=== PATIENT | female | born 1960 | race Caucasian/White ===

== ENCOUNTER 2019-03-16 07:34 | Inpatient (IN) | payer BC ==
--- NOTE | 2019-03-09 08:57 | EKG ---
Test Date: 2019-03-09 Test Time: 08:33:07 School Inspector: DELMY MEASUREMENT RESULTS: Intervals: Rate: 59 CA: 126 QRSD: 96 QT: 434 QTc: 429 [place]: P: 56 CA: 126 QRS: 23 T: 39 INTERPRETIVE STATEMENTS: Sinus bradycardia Otherwise normal ECG Compared to ECG 08/25/2016 15:18:06 Sinus rhythm no longer present Electronically Signed On 03-09-19 08:57:04 CHANNELER by Rachid Jackson
--- NOTE | 2019-03-09 09:34 | RAD REPORT ---
EXAM DESCRIPTION: Latanya Treadwell (2 Views)03/09/2019 8:58 am CLINICAL HISTORY: Preop for knee replacement COMPARISON: 2016 FINDINGS: The lungs appear clear of acute infiltrate. The heart is normal size Small to moderate hiatal hernia IMPRESSION: No acute abnormalities displayed
[2019-03-09 10:28] LABS: Urine Appearance CLEAR; Urine Bilirubin NEGATIVE (NEG); Urine Blood TRACE (NEG); Urine Color YELLOW; Urine Glucose NEGATIVE (NEG); Urine Protein NEGATIVE (NEG)
[2019-03-09 10:32] LABS: Absolute Lymphocytes (CBC) 1.4 K/uL (0.7-4.9); Hematocrit 38.3 % (36.0-45.0); Lymphocytes % 29.1 % (15.3-44.8); MPV 8.8 fL (7.6-11.3); RBC Red Blood Cell Count 4.86 M/uL (3.86-4.86)
[2019-03-09 10:35] LABS: Protime INR 0.98
[2019-03-09 10:38] LABS: Potassium 3.7 mmol/L (3.5-5.1)
[2019-03-09 10:49] LABS: Urine Microscopic Reflex ORDER UMIC
[2019-03-09 10:50] LABS: Albumin 3.7 g/dL (3.4-5.0); Bilirubin Direct 0.1 mg/dL (0-0.2); Bilirubin Total 0.5 mg/dL (0.2-1.0); Protein, Total 7.1 g/dL (6.4-8.2)
[2019-03-09 10:58] LABS: Urine Bacteria <20 /HPF (<20); Urine Culture Reflex Order REFLEXED; Urine Mucus LIGHT /HPF (NONE SEEN)
--- OUTSIDE RECORDS SUMMARY | 2019-03-16 07:37 | XMS REPORT ---
:1960 Author Organization [facility] Address [address] [place] [address] Care Team Providers Name Role Phone UNKNOWN, REFFERING Primary Care Provider Unavailable CADENCE ADKINS JR Unavailable Unavailable Payers Payer Name Policy Type Policy Number Effective Date Expiration Date Problems This patient has no known problems. Allergies, Adverse Reactions, Alerts Allergy Allergy Status Severity Reaction(s) Onset Inactive Treating Comments Name Type Date Date Clinician No Known DA Active U 2018-11 Allergies 13 00:00:0 0 Medications This patient has no known medications. Results Test Description Test Time Test Comments Text Results Atomic Results Result Comments - XR FLUORO FOR SPINE 2018-11-17 12:07:00 Patient Name: ELIS JONES INJ Unit No: [id number] EXAMS: CPT CODE: [id number] XR FLUORO FOR SPINE INJ 86399 LUMBAR FACET INJECTION REFERRING PHYSICIAN: PREOPERATIVE DIAGNOSIS: 1. Lumbar facet arthropathy POSTOPERATIVE DIAGNOSIS: 1. Bilateral L4-5, bilateral L5-S1 lumbar facet spondylosis without radiculopathy PROCEDURES PERFORMED Fluoroscopically guided needle localization of the bilateral L4-5, bilateral L5-S1 lumbar facets with injection of local anesthetic and steroids 2. Arthrograms of the bilateral L4-5, bilateral L5-S1 lumbar facets FINDINGS: 1. Concordant provocation both joints both sides ANTIBIOTIC: Cefazolin ESTIMATED BLOOD LOSS: Minimal ANESTHESIA: (TIVA) Total intravenous anesthetic (patient intolerant to sedatives and hypnotics). COMPLICATIONS: None DETAILS OF PROCEDURE: After obtaining stable vital signs, informed consent and IV access, with no known contraindications to proceeding, the patient was taken to the fluoroscopy suite and placed in a prone position with all extremities padded and appropriate monitors placed. A sterile prep and drape was performed over the lumbosacral spine. Using fluoroscopic visualization at each level the insertion site was marked for a paravertebral approach to the facets. Using standard technique, a 25 gauge needle was advanced to the facets. In AP view, the needle was advanced into the facets. Then, 1 ml of Isovue-300 contrast was injected to produce the arthrograms. AP, lateral and oblique views were documented. No paresthesias were elicited with needle insertion or injection and there were no signs of intravascular or intrathecal uptake. Then, 1 ml of 0.75% bupivacaine with 1 ml of 4% lidocaine and 10 mg of triamcinolone was injected incrementally with frequent negative aspirations. There were no signs of intravascular or intrathecal uptake. Each subsequent level was done using the same technique and medications. The patient's vital signs remained stable. LUMBAR TRANSFORAMINAL INJECTION REFERRING PHYSICIAN: PREOPERATIVE DIAGNOSIS: Degenerative Lumbar Disc Disease. [facility] NAME: ELIS JONES [address] [facility] PHYS: DOCUD - DoctorMervin MD [place], [place] [address] : 1960 AGE: 58 SEX: F LOC: [facility] PHONE #: [phone] EXAM DATE: 11/17/2018 STATUS: [facility] FAX #: [phone] RAD #: D/C DT PAGE 1 Signed Report (CONTINUED) Patient Name: ELIS JONES Unit No: [id number] EXAMS: CPT CODE: [id number] XR FLUORO FOR SPINE INJ 63311 <Continued> POSTOPERATIVE DIAGNOSIS: Bilateral lumbar radiculopathy PROCEDURES PERFORMED 1. Fluoroscopically guided needle localization of the bilateral L5 spinal nerve/nerves with transforaminal epidural steroid injection/injections. 2. Transforaminal epidurogram/epidurograms at bilateral L5. FINDINGS: Poor filling , bilateral L5. Concordant provocation bilateral L5 hips. Pain relief-100%. ANTIBIOTIC: Cefazolin ESTIMATED BLOOD LOSS: Minimal ANESTHESIA: (TIVA )Total intravenous anesthetic (patient intolerant to sedatives and hypnotics) COMPLICATIONS: None DETAILS OF PROCEDURE: After obtaining stable vital signs, informed consent and IV access, with no known contraindications to proceeding, the patient was taken to the fluoroscopy suite and placed in a prone position with all extremities padded and appropriate monitors placed. A sterile prep and drape was performed over the lumbosacral spine. Using fluoroscopic visualization at each level the insertion site was marked for a paravertebral approach to the foramen. Using standard technique, a 25 gauge needle was advanced to the base of the pedicle. In AP view, final positioning was obtained outside the 6 on the clock position on the pedicle. Then, 1 ml of Isovue-300 contrast was injected to produce the epidurograms. No paresthesias were elicited with needle insertion or injection and there were no signs of intravascular or intrathecal uptake. Then, with 1 ml of 4% lidocaine and 10 mg of triamcinolone was injected incrementally with frequent negative aspirations. There were no signs of intravascular or intrathecal uptake. Each subsequent level was done using the same technique and medications. The patient's vital signs remained stable. The patient was taken to the PACU in good condition. at 1207 Reported and signed by: Mervin Hogue M.D. CC: Technologist: Yodit Abdalla(Claus) Transcribed D/ (1791) Echo [facility] NAME: ELIS JONES [address] [facility] PHYS: Mervin Chung MD [place], [place] [address] : 1960 AGE: 58 SEX: F LOC: S[facility]ACI PHONE #: [phone] EXAM DATE: 11/17/2018 STATUS: [facility] FAX #: [phone] RAD #: D/C DT PAGE 2 Signed Report Patient Name: ELIS JONES Unit No: [id number] EXAMS: CPT CODE: [id number] XR FLUORO FOR SPINE INJ 41939 <Continued> Orig Print D/T: S: 11/17/2018 (2567) [facility] NAME: ELIS JONES [address] [facility] PHYS: Mervin Chung MD [place], [place] [address] : 1960 AGE: 58 SEX: F LOC: [facility] PHONE #: [phone] EXAM DATE: 11/17/2018 STATUS: [facility] FAX #: [phone] RAD #: D/C DT PAGE 3 Signed Report AFB Culture and Smear 2017-09-15 13:02:00 Specimen/Source: Wound/RT.WRISTCollected: 07/20/2017 15:06 Status: Final Last Updated: 09/15/2017 13:02 EFR-Rzriw-Juvwwwsgllbb (Final) (Final) 07/21/17 No acid fast bacill seen on direct smear Culture Result (Final) (Final) 09/15/17 No growth of AFB at six (6) weeks Fungus Culture with 2017-09-07 10:00:00 Specimen/Source: Stain Wound/RT.WRISTCollected: 07/20/2017 15:06 Status: Final Last Updated: 09/07/2017 10:00 Fungal Smear Result (Final) (Final) 07/21/17 No yeast or hyphae seen Culture Result (Final) (Final) 09/07/17 No fungus isolated at 6 weeks Culture, Wound Surgical 2017-07-25 09:23:00 Specimen/Source: Wound/RT.WRISTCollected: 07/20/2017 15:06 Status: Final Last Updated: 07/25/2017 09:23 Gram Stain (Final) (Final) 07/21/17 Few WBC'S , No Organisms Seen Culture Result (Final) (Final) 07/21/17 No growth 24 hours 07/22/17 No growth 48 hours 07/23/17 No growth 3 days 07/24/17 No growth 4 days 07/25/17 No growth 5 days 07/25/17 Anaerobic culture:No anaerobes isolated at 5 days
--- OUTSIDE RECORDS SUMMARY | 2019-03-16 07:38 | XMS REPORT ---
:1960 Author Organization [employer] Care Team Providers Name Role Phone Alessandro Matias Provider Role Unavailable Allergies No Known Allergies Problems Problem Type Condition Code Onset Dates Condition Status Problem Left sided sciatica M54.32 Active Problem Pain in joint of left knee M25.562 Active Problem Primary osteoarthritis of left knee M17.12 Active Medications No Known Medications Results No Known Results Summary Purpose eClinicalFedCyber Submission
--- OUTSIDE RECORDS SUMMARY | 2019-03-16 07:38 | XMS REPORT ---
:1960 Author Organization [employer] Care Team Providers Name Role Phone Benny Kay Provider Role Unavailable Allergies No Known Allergies Problems Problem Type Condition Code Onset Dates Condition Status Problem Left sided sciatica M54.32 Active Problem Pain in joint of left knee M25.562 Active Problem Primary osteoarthritis of left knee M17.12 Active Medications No Known Medications Results No Known Results Summary Purpose MOGLinicalPreedo Submission
--- OUTSIDE RECORDS SUMMARY | 2019-03-16 07:38 | XMS REPORT ---
:1960 Author Organization [employer] Care Team Providers Name Role Phone Benny Kay Provider Role Unavailable Allergies, Adverse Reactions, Alerts Substance Reaction Event Type N.K.D.A. Info Not Available Non Drug Allergy Problems Problem Type Condition Code Onset Dates Condition Status Problem Left sided sciatica M54.32 Active Problem Pain in joint of left knee M25.562 Active Problem Primary osteoarthritis of left knee M17.12 Active Assessment Primary osteoarthritis of left knee M17.12 Active Assessment Pain, joint, knee, left M25.562 Active Medications Medication Code Code Instructions Start End Status Dosage System Date Date Pantoprazole [facility] 45214601670 40 MG Oral Active not Sodium defined Tramadol HCl [facility] 66432706015 50 MG Orally Apr 12, Active 1 tablet every 6 hrs 2019 as needed Sertraline HCl [facility] 90266220521 100 MG Oral Active not defined Nitrofurantoin [facility] [address]-40 Active not Monohyd Macro defined Azithromycin [facility] 90102631327 250 MG Oral Active not defined Doxycycline [facility] 63621580454 100 MG Orally Active 1 capsule Hyclate every 12 hrs Fluconazole [facility] [address]-58 Active not defined Levothyroxine [facility] 08954542927 75 MCG Oral Active not Sodium defined Acetaminophen-Cod [facility] [address]-35 Active not eine #3 defined Protonix [facility] 53105351403 40 MG Orally Active 1 tablet Once a day Results No Known Results Summary Purpose [employer]Works Submission
--- OUTSIDE RECORDS SUMMARY | 2019-03-16 07:38 | XMS REPORT ---
[...] Medications Results No Known Results Summary Purpose authorSTREAM.cominicalPowerUp Toys Submission
--- OUTSIDE RECORDS SUMMARY | 2019-03-16 07:38 | XMS REPORT ---
[...] Medications Results No Known Results Summary Purpose DocLandinginicalLexdir Submission
--- OUTSIDE RECORDS SUMMARY | 2019-03-16 07:38 | XMS REPORT ---
[...] Medications Results No Known Results Summary Purpose Blast RampinicalScentbird Submission
[2019-03-16] MEDS ORDERED: NS 0.9% VIAL 10 ML ONE (07:54)
[2019-03-16] MEDS ORDERED: LIDOCAINE 2% MPF 5 ML VIAL ONE ×2 (07:54→10:09)
[2019-03-16] MEDS ORDERED: dexAMETHasone 10 MG/ML VIAL ONE ×2 (07:55→10:58)
[2019-03-16] MEDS ORDERED: BUPIVACAINE 0.25% PF 10 ML VIAL ONE (07:55)
[2019-03-16] MEDS ORDERED: Ringers Lactate 1,000 ML IV ONE ×2 (08:17→13:14)
[2019-03-16] MEDS ORDERED: MIDAZOLAM HCL 2 MG/2 ML INJ ONE (09:12)
[2019-03-16] MEDS ORDERED: FENTANYL CITR 100 MCG/2 ML ONE (09:12)
[2019-03-16] MEDS: CEFAZOLIN/SWI 2gm 2 GM/20 ML SYR ONE ×2 (09:55→10:40)
[2019-03-16] MEDS ORDERED: TRANEXAMIC ACID 1,000 MG in NA CHLORIDE 0.9% 50 ML IV SCH (10:00)
[2019-03-16] MEDS ORDERED: PROPOFOL 200 MG/20 ML VIAL IV ONE (10:09)
[2019-03-16] MEDS ORDERED: HYDROMORPHONE HCL 1 MG/ML INJ ONE (10:13)
[2019-03-16] MEDS ORDERED: SCOPOLAMINE HYDROBROMIDE PATCH TD ONE (10:27)
[2019-03-16] MEDS: BUPIVACA 0.5%/EPI 0.0005%/PF 30 ML VIAL ONE ×2 (10:33→13:30)
[2019-03-16] MEDS ORDERED: KETOROLAC 30 MG/ML INJ ONE (10:58)
[2019-03-16] MEDS ORDERED: KETAMINE HCL 500 MG/5 ML VIAL ONE (10:58)
[2019-03-16] MEDS ORDERED: ONDANSETRON 4 MG/2 ML VIAL ONE (11:01)
[2019-03-16] MEDS ORDERED: GLYCOPYRROLATE 0.2 MG/ML SYR ONE (11:28)
[2019-03-16] MEDS: Ringers Lactate 1,000 ML IV ONE ×3 (13:09→13:44)
[2019-03-16] MEDS ORDERED: FEXOFENADINE PO PRN (13:55)
[2019-03-16] MEDS ORDERED: PSEUDOEPHEDRINE PO PRN (13:55)
[2019-03-16] MEDS ORDERED: POLYETHYL GLY 3350 17 GM/DOSE PO PRN (13:55)
--- NOTE | 2019-03-16 13:55 | P.BOP ---
Preoperative diagnosis: left knee osteoarthritis Postoperative diagnosis: same Primary procedure: left total knee arthroplasty Title Coordinator: NONE,NONE Estimated blood loss: 20 cc Specimen: left knee bone remnants Findings: see dictation Anesthesia: General Complications: None Drain(s): Urinary catheter Implants: Arron Persona 9 CR STD femur, Size F tibia, 10 mm UC poly, 35 patella Fluids & blood products: per anesthesia record; TT: 98 mins @ 300 mmHg Transferred to: Recovery Room Condition: Good
[2019-03-16] MEDS ORDERED: HYDROCODONE/APAP 7.5/325 MG TAB PO PRN (13:57)
[2019-03-16] MEDS: HYDROMORPHONE HCL 1 MG/ML INJ ONE ×2 (14:21→14:26)
--- NOTE | 2019-03-16 14:29 | RAD REPORT ---
EXAM DESCRIPTION: RAD - Knee Left 2 View - 03/16/2019 2:17 pm CLINICAL HISTORY: Left knee surgery FINDINGS: Left knee arthroplasty has been performed. The prosthesis is in good position. No fracture or dislocation.
[2019-03-16 14:33] LABS: Hematocrit 36.3 % (36.0-45.0)
[2019-03-16 14:55] VITALS: BMI 26.6
[2019-03-16] MEDS: CEFAZOLIN/SWI 2gm 2 GM/20 ML SYR IVP SCH (17:35)
[2019-03-16] MEDS: MORPHINE 2 MG/ML SYR IV PRN (18:28)
[2019-03-16] MEDS: DIPHENHYDRAMINE 50 MG/ML VIAL IV PRN (18:50)
[2019-03-16] MEDS: TRAMADOL HCL 50 MG TAB PO PRN (23:58)
[2019-03-17] MEDS: CEFAZOLIN/SWI 2gm 2 GM/20 ML SYR IVP SCH ×2 (01:19→10:01)
[2019-03-17] MEDS: DIPHENHYDRAMINE 50 MG/ML VIAL IV PRN (01:19)
[2019-03-17] MEDS: ENOXAPARIN 30 MG/0.3 ML SQ SCH ×3 (05:31→21:31)
[2019-03-17] MEDS: LEVOTHYROXINE SOD 0.075 MG TAB PO SCH (05:32)
[2019-03-17] MEDS: TRAMADOL HCL 50 MG TAB PO PRN (05:42)
[2019-03-17] MEDS: SERTRALINE HCL 100 MG TAB PO SCH (10:01)
[2019-03-17] MEDS: DOCUSATE NA 100 MG CAP PO SCH (10:02)
[2019-03-17] MEDS: PANTOPRAZOLE 40MG TABLET PO SCH (10:02)
[2019-03-17] MEDS: MORPHINE 2 MG/ML SYR IV PRN ×2 (10:05→23:53)
[2019-03-17 11:32] VITALS: O2SAT 98
[2019-03-17] MEDS ORDERED: DIPHENHYDRAMINE 25 MG TAB/CAP PO PRN (11:53)
--- NOTE | 2019-03-17 11:58 | P.PN ---
Subjective Date of Service: 03/17/19 Chief Complaint: s/p L TKA Subjective: Tolerating diet, Working w/ PT Pain not controlled with tramadol. Improved with Morphine. Does not tolerated [place]. Physical Examination - Vital Signs Temperature: 97.7 F Blood Pressure: 103/60 Pulse: 70 Respirations: 17 Pulse Ox (%): 98 - Physical Exam General: Alert, In no apparent distress Musculoskeletal: Other (LLE: dressing c/d/i; +EHL/FHL/GSC/TA; sensation grossly intact over dorsal and plantar foot) - Studies Laboratory Data (last 24 hrs) 03/16/19 14:10: Hgb 12.0, Hct 36.3 Assessment And Plan - Plan Kinga is a 59 yo female s/p L TKA POD#1 -PT to continue to mobilize; WBAT LLE -likely d/c tomorrow after AM PT -lovenox for DVT prophylaxis -d/c mendez -add Tylenol #3 for pain control
[2019-03-17] MEDS: CODEINE 30MG/APAP 300MG TAB PO PRN ×2 (14:54→21:31)
--- NOTE | 2019-03-17 15:40 | P.OP ---
Preoperative diagnosis: left knee osteoarthritis Postoperative diagnosis: same Primary procedure: left total knee arthroplasty Anesthesia: general LMA Estimated blood loss: 20 cc Specimen: left knee bone remnants Findings: see dictation Operative Technique: Indication For Procedure: Kinga is 59-year-old female who presented to my clinic with signs, symptoms, and x-ray findings consistent with severe degenerative arthritis of her left knee. The patient failed conservative treatment measures including corticosteroid injections, viscosupplementation injections as well as home exercise program. Given her continued pain that effected her ADLs, we discussed and agreed to proceed with left total knee arthroplasty. Description Of Procedure: After informed consent was obtained, the patient was identified in the preoperative holding area. The left lower extremity was marked. The patient was then brought back to the operating room, transferred to the operating table in supine fashion, and placed under general anesthesia. The left lower extremity was then prepped and draped in usual sterile fashion and time-out was initiated. The correct patient and procedure were confirmed and identified. The patient had received her preoperative prophylactic antibiotics. The left lower extremity was then exsanguinated using an Esmarch. Tourniquet was inflated to 300 mmHg. Approximately 15 cm longitudinal incision was made centered over the anterior knee. Dissection was then taken down to the extensor mechanism and a standard median parapatellar approach was taken to the knee. The patella was inverted. The fat pad was then excised. The soft tissues were then elevated medially over the proximal tibia. The medial and lateral menisci were excised as well as ACL and the knee was placed in the hyperflexion. Hypertrophic synovial tissue was then excised over the anterior knee. The retractors were then put into place to protect the collateral ligaments. A distal femoral jig was then placed on the distal femur. The guides were made preoperatively using preoperative MRI. The guide snapped onto the distal femur. Pins were placed both anteriorly and distally. The distal pins were then marked and the distal femoral cutting guide was then placed over the appendage. The distal femur was then cut. The pins were removed followed by 4-in-1 cutting guide. 4-in-1 cutting guide was then placed at the prior placed pin sites on the distal end of the femur. It was pinned into position. The neha wing was then used to ensure proper position and proper cuts and there was no obvious notching of the femur to be noted. The anterior and posterior cuts were then made followed by the anterior posterior chamfer cuts. Bone remnants were then removed without complication. Next, attention was taken to the proximal tibia cutting guide, which had been made preoperatively was placed and snapped into position on the proximal tibia. Alignment elise was then attached to the guide and there was overall good alignment with good slope as well as good alignment in line with the tibial shaft. The pins were placed followed by the cutting guide and the proximal tibial cut was then made ensuring protection of the PCL at all times. The bone that was removed was measured on the back table consistent with the size F tibia. Spacer blocks were put into position with some tightness using a size 10 spacer block and 2 mm of extra tibia was cut. After this was performed, there was overall good fit in extension and flexion with a 10 mm spacer block. Next, attention was taken to the patella where lateral release was performed. The patella was cut to size, 35 patella was selected and trial implants were then placed using a size 9 standard CR femur and F tibia and a 10 mm poly. There was good overall stability in flexion and extension with good overall range of motion with full extension achieved. Patellar button was also placed and there was good overall feel with the patellar tracking. It was noted there was some mild deficiency of the PCL and a UC polyethylene liner was used and there was great stability in flexion and extension. The tibial tray was marked. The trial instruments were then removed. Next, a size F tibia was confirmed and the tibia was punched. All the trial instruments were removed. The wound was then irrigated thoroughly with normal saline and 30 cc of 0.5% Marcaine with epinephrine was then injected in the posterior capsule into the anterior synovium and the extensor mechanism and periosteum of the distal femur and proximal tibia. Next, cement was prepared on the back table with the knee held in hyperflexion. The cement was then placed on the proximal tibia with placement of a size F tibia, followed by placement of cement on the distal femur using a size 9 standard femur. A 10 mm UC poly was then placed. Excess cement was removed using [place] elevators. The knee was then placed in extension as the cement dried, and attention was placed into the tip placed in the patellar button on. Cement was placed on the backside of the patella and the patellar button was placed with compression held on the patellar button throughout drying of the cement. Excess cement was removed. Once the cement was completely hard, the knee was then ranged and had good overall range of motion and stability in flexion, extension. A final 10 mm UC poly was then placed into position and locked into position without complication. The knee was again ranged. There was full stable range of motion. The wound was then irrigated thoroughly. Extensor mechanism was approximated using #1 Vicryl in interrupted and running fashion. The deep fascia was approximated using a 0 Vicryl. Skin and subcutaneous tissue were approximated using a 2-0 Vicryl. Skin was approximated using brandi. Sterile dressings were applied. The patient was awakened and transferred to PACU in stable condition. Postoperative Plan: She will be admitted to the floor. We will monitor her vital signs and labs. Physical Therapy will be consulted to aid with mobilization. Complications: None Drain(s): Urinary catheter Implants: Arron Persona Size 9 STD femur, Size F Tibia, 10 mm UC poly, 35 patella Fluids & blood products: per anesthesia record; TT; 98 mins @ 300 mmHg Transferred to: Recovery Room Condition: Good
[2019-03-18] MEDS: MORPHINE 2 MG/ML SYR IV PRN (05:56)
[2019-03-18] MEDS: LEVOTHYROXINE SOD 0.075 MG TAB PO SCH (05:57)
[2019-03-18 08:20] VITALS: BP 121/60; TEMP 98
[2019-03-18] MEDS: PANTOPRAZOLE 40MG TABLET PO SCH (08:39)
[2019-03-18] MEDS: DOCUSATE NA 100 MG CAP PO SCH (08:39)
[2019-03-18] MEDS: ENOXAPARIN 30 MG/0.3 ML SQ SCH (08:39)
[2019-03-18] MEDS: SERTRALINE HCL 100 MG TAB PO SCH (08:39)
[2019-03-18] MEDS: CODEINE 30MG/APAP 300MG TAB PO PRN (08:39)
--- NOTE | 2019-03-18 09:34 | P.DS ---
Admission Date: 03/16/19 Discharge Date: 03/18/19 Disposition: DC HOME/HOME HEALTH CARE Discharge Condition: GOOD Reason for Admission: s/p L TKA Consultations: none Procedures: left total knee arthroplasty 03/16/2019 Brief History of Present Illness: Kinga is a 59 yo female underwent TKA on 03/16/2019 without complication Hospital Course: Patient was admitted to the floor postoperatively in stable condition. She was started on lovenox for DVT prophylaxis and physical therapy was consulted to aid with mobilization. She remained stable while on the floor and mobilized well with PT and was discharged on 03/18/2019 in stable condition. She will begin Xarelto for DVT prophylaxis tomorrow and followup in my clinic in 2 weeks for staple removal. Vital Signs/Physical Exam: Temp Pulse Resp BP Pulse Ox 98.0 F 78 16 121/60 98 03/18/19 08:00 03/18/19 08:00 03/18/19 08:00 03/18/19 08:00 03/18/19 08:00 Laboratory Data at Discharge: WBC 4.8 K/uL (4.3-10.9) 03/09/19 08:40 Hgb 12.0 g/dL (12.0-15.0) 03/16/19 14:10 Hct 36.3 % (36.0-45.0) 03/16/19 14:10 Plt Count 231 K/uL (152-406) 03/09/19 08:40 PT 11.6 SECONDS (9.5-12.5) 03/09/19 08:40 INR 0.98 03/09/19 08:40 APTT 33.3 SECONDS (24.3-36.9) 03/09/19 08:40 Sodium 142 mmol/L (136-145) 03/09/19 08:40 Potassium 3.7 mmol/L (3.5-5.1) 03/09/19 08:40 BUN 13 mg/dL (7-18) 03/09/19 08:40 Creatinine 0.91 mg/dL (0.55-1.3) 03/09/19 08:40 Glucose 92 mg/dL (74-106) 03/09/19 08:40 Total Bilirubin 0.5 mg/dL (0.2-1.0) 03/09/19 08:40 AST 21 U/L (15-37) 03/09/19 08:40 ALT 26 U/L (12-78) 03/09/19 08:40 Alkaline Phosphatase 98 U/L (45-117) 03/09/19 08:40 Home Medications: Levothyroxine [Synthroid*] 75 mcg PO [id number] 02/24/16 Sertraline [Zoloft*] 100 mg PO DAILY 02/24/16 Pantoprazole [Protonix Tab*] 40 mg PO DAILY #30 tab 02/26/16 Acetaminophen [Tylenol Extra Strength] 1,000 mg PO BEDTIME 09/15/16 Docusate [Colace Cap*] 100 mg PO DAILY 09/15/16 Multivitamin [Multivitamins] 1 each PO DAILY 09/15/16 Fexofenadine/Pseudoephedrine [Fernanda-D 24 Hour Tablet] 1 each PO PRN PRN Polyethylene Glycol 3350 [Miralax] 17 gm PO PRN PRN 03/09/19 Codeine/APAP [Tylenol #3*] 1 tab PO Q4H PRN tab 03/18/19 traMADol HCL [Ultram*] 50 mg PO Q6H PRN tab 03/18/19 Patient Discharge Instructions: keep dressing clean and dry; change dressing to left knee as needed with aquacel bandage; begin Xarelto on 03/19/2019 in morning Diet: Regular Activity: Weight bearing as tolerated Followup: Benny Kay MD [ACTIVE - CAN ADMIT] - 1-2 Weeks
[2019-03-18] MEDS: TRAMADOL HCL 50 MG TAB PO PRN (10:52)
== END 2019-03-18 11:40 | disposition home health service (06) | DRG 470 ==
LOC: OR 07:34 → 2ND 13:57
PROVIDERS: ADMIT Orthopaedic Surgery Sports Medicine; ATTEND Orthopaedic Surgery Sports Medicine
PROC: 0SRD069 Replacement of Left Knee Joint with Oxidized Zirconium on Polyethylene Synthetic Substitute, Cemented, Open Approach (ICD-10-PCS; principal; 2019-03-16 09:30)
DX: M17.12 Unilateral primary osteoarthritis, left knee (principal); Z98.84 Bariatric surgery status
CPT/HCPCS: 36415; 71046; 80048; 80076; 81003; 81015; 85014; 85018; 85025; 85610; 85730; 87086; 87088; 88305; 88311; 93005; 97110; 97116; 97139; 97161; 97530; J0690; J1100; J1170; J1200; J1650; J2250; J2270; J2405; J2704; J3010; J7120